=== PATIENT | male | born 1995 | race Caucasian/White ===

== ENCOUNTER 2018-05-22 02:32 | Emergency (ER) | payer SELFPAY ==
[~2018-05-22] VITALS: Ht 177.8 cm; Wt 66.8 kg
[~2018-05-22 02:32] MED LIST: AMOXICILLIN875 MG OR; CEFZIL250 MG/5 M OR; DARVOCET-N 100100 MG OR; KEFLEX500 MG OR; MOTRIN IB200 MG; MOTRIN200 MG PO; PROVENTIL IN; TUBERSOL5 MG/0.1 M ID; TYLENOL & COD12.5 ML OR
[2018-05-22 03:18] LABS: HEMATOCRIT 46.3 % (39.0-50.0); HEMOGLOBIN 16.4 g/dl (14.0-18.0); IMMATURE GRANULOCYTES 0.5 % (0.0-5.0); MEAN CORPUSCULAR HGB 31.6 pG CALC (26.0-32.0); MEAN CORPUSCULAR HGB CONC 35.4 g/L CALC (32.0-36.0); NEUT# 10.99 thou/uL (1.82-7.42); RED BLOOD COUNT 5.19 mill/uL (4.70-6.10); RED CELL DISTRI WIDTH 11.9 % (11.5-15.5)
[2018-05-22 03:19] LABS: MEAN CELL VOLUME 89.2 fL CALC (80.0-100.0)
[2018-05-22 03:38] LABS: ALBUMIN 4.7 g/dL (3.2-5.0); BILIRUBIN, TOTAL 0.6 mg/dL (0.0-1.4); BUN 10 mg/dL (9-20); BUN/CREATININE RATIO 11 (12-20 (CALC)); CARBON DIOXIDE 21 mmol/l (22-30); CHLORIDE 109 mmol/l (95-108); CREATININE 0.9 mg/dL (0.7-1.3); ETHYL ALCOHOL 93 mg/dl (0-30); GFR > 60 ML/MIN (>=60 (CALC)); GFR FOR AFR.AMER. > 60 ML/MIN (>=60 (CALC)); POTASSIUM 3.7 mmol/l (3.5-5.1); SGOT/AST 30 u/l (17-59); TOTAL PROTEIN 7.6 g/dL (6.3-8.2)
[2018-05-22 03:42] LABS: ALKALINE PHOSPHATASE 39 u/l (38-126); ANION GAP 19 (6-22 (CALC)); SODIUM 145 mmol/l (137-146)
[2018-05-22 05:11] VITALS: BP 126/80
== END 2018-05-22 05:11 | disposition short-term general hospital (02) | DRG 159 ==
LOC: ED 02:32
PROVIDERS: Family Medicine
DX: S02.602A Fracture of unspecified part of body of left mandible, initial encounter for closed fracture (principal); S01.511A Laceration without foreign body of lip, initial encounter; Y04.2XXA Assault by strike against or bumped into by another person, initial encounter